=== PATIENT | female | born 1990 | race Caucasian/White ===

== ENCOUNTER 2017-07-12 20:01 | Emergency (ER) | payer OTHER ==
[2017-07-13 00:07] LABS: URINE BLOOD (Dip) POC 1+ (NEGATIVE); URINE GLUCOSE (Dip) POC Negative (NEGATIVE); URINE KETONES (Dip) POC Negative (NEGATIVE); URINE LEUKOCYTE EST (Dip) POC Negative (NEGATIVE); URINE NITRITE (Dip) POC Negative (NEGATIVE); URINE TOTAL PROTEIN POC Negative (NEGATIVE)
[2017-07-13] MEDS: KETOROLAC 30 MG INJ IM (00:09)
== END 2017-07-13 02:09 | disposition home or self-care (01) ==
LOC: FTE 20:01
DX: N94.0 Mittelschmerz (principal)
CPT/HCPCS: 81003; 96372; 99284-25